=== PATIENT | female | born 1990 | race Caucasian/White ===

== ENCOUNTER 2023-11-28 13:54 | Emergency (ER) | payer SELFPAY ==
[2023-11-28] MEDS ORDERED: Ketorolac Tromethamine 30 MG (1 mL) VIAL ONE (14:48)
[2023-11-28] MEDS ORDERED: predniSONE 20 MG TAB ONE (14:48)
[2023-11-28] MEDS ORDERED: Acetaminophen 500 MG TAB ONE (14:48)
[2023-11-28] MEDS ORDERED: Ventolin HFA Inhaler 60 PUFF INHALER ONE (14:50)
== END 2023-11-28 15:30 | disposition home or self-care (01) ==
LOC: CSHERS 13:54
DX: S29.012A Strain of muscle and tendon of back wall of thorax, initial encounter (principal); S39.012A Strain of muscle, fascia and tendon of lower back, initial encounter; F17.210 Nicotine dependence, cigarettes, uncomplicated; X50.0XXA Overexertion from strenuous movement or load, initial encounter
CPT/HCPCS: 71046; 96372; J1885; J7512

== ENCOUNTER 2025-04-25 10:40 | Emergency (ER) | payer OTHER ==
[2025-04-25 11:57] LABS: #Basophils Less than 0.03 10x3/uL (0.0-0.2); #Eosinophils 0.43 10x3/uL (0.0-0.5); #Monocytes 0.66 10x3/uL (0.0-1.1); #Neutrophils 4.55 10x3/uL (1.5-8.4); %Basophils 0.2 % (0.0-2.0); %Eosinophils 5.3 % (0.0-6.0); %Lymphocytes 29.6 % (18.0-47.0); %Monocytes 8.1 % (0.0-10.0); %Neutrophils 55.9 % (40.0-75.0); Hematocrit 34.3 % (34.9-44.5); Hemoglobin 11.4 g/dL (12.0-15.5); Mean Corpuscular Hemoglobin 32.6 pg (27.0-33.0); Mean Corpuscular Volume 98.0 fL (81.6-98.3); Platelet Count 400 10x3/uL (150-450); Red Blood Cell (RBC) Count 3.50 10x6/uL (3.90-5.03); White Blood Cell (WBC) Count 8.14 10x3/uL (3.5-10.5)
[2025-04-25 12:17] LABS: BHCG - Serum Negative (NEGATIVE); Pregs Control Background? CLEAR/WHITE (CLR/WHITE); Pregs Control Bar Appear? YES (CONTROL BAR)
[2025-04-25 12:30] LABS: ALT (SGPT) 41 U/L (Less than 34); AST (SGOT) 44 U/L (11-34); Albumin 3.2 g/dL (3.1-4.5); Alkaline Phosphatase 73 U/L (40-110); Anion Gap 10 mmol/L (10-20); BUN (Urea Nitrogen) 13 mg/dL (7.0-18.7); Bilirubin, Total 0.1 mg/dL (0.3-1.2); Calc. Creatinine Clearance 0 mL/min (70-130); Calcium 9.1 mg/dL (7.8-10.44); Carbon Dioxide 30 mmol/L (22-29); Chloride 104 mmol/L (98-107); Globulin 2.6 g/dL (2.4-3.5); Glucose 94 mg/dL (70-105); Potassium 4.6 mmol/L (3.5-5.1); Sodium 139 mmol/L (136-145)
[2025-04-25] MEDS ORDERED: HYDROcodone/Acetaminophen 5/325 mg Tablet ONE (13:58)
[2025-04-25 14:45] LABS: Glucose, Urine (Dipstick) Normal (Negative); Leukocyte 500 (Negative); Protein, Urine (Dipstick) 15 mg/dl (Neg-Trace); Specific Gravity, Urine 1.020 (1.005-1.030)
[2025-04-25 17:11] LABS: Bacteria/HPF 4+ HPF (None Seen); CAUTI Indications for Culture Pelvic or flank pain; RBC/HPF 0-3 HPF (0-3); WBC/HPF Greater Than 50 HPF (0-3)
[2025-04-25 17:12] LABS: Urine Culture Reflex Yes Yes
== END 2025-04-25 15:43 | disposition home or self-care (01) ==
LOC: CSHERS 10:40
DX: N39.0 Urinary tract infection, site not specified (principal); M54.50 Low back pain, unspecified; F17.210 Nicotine dependence, cigarettes, uncomplicated; F17.290 Nicotine dependence, other tobacco product, uncomplicated
CPT/HCPCS: 36415; 72128; 72131; 80053; 81001; 84703; 85025; 86140; 87077; 87086; 96374; 96375; 96376; J2272

== ENCOUNTER 2025-04-30 23:19 | Emergency (ER) | payer OTHER ==
[2025-05-01] MEDS ORDERED: HYDROcodone/Acetaminophen 5/325 mg Tablet ONE (00:37)
== END 2025-04-30 23:45 | disposition home or self-care (01) ==
LOC: CSHERS 23:19
DX: K08.89 Other specified disorders of teeth and supporting structures (principal); F17.210 Nicotine dependence, cigarettes, uncomplicated; F17.290 Nicotine dependence, other tobacco product, uncomplicated; Z79.899 Other long term (current) drug therapy
CPT/HCPCS: 99282